=== PATIENT | female | born 1990 | race Caucasian/White ===

== ENCOUNTER → 2018-03-08 09:39 | Outpatient (CLI) | payer OTHER, SELFPAY ==
--- NOTE | 2018-03-08 | DI.US.S_ITS ---
PROCEDURE: US OB >= 14 WEEKS FETUS INDICATIONS: ANATOMY SCREENING OUTSIDE/PRIOR DATING DATA: Last menstrual period (LMP): 10/19/2017. LMP-based estimated date of delivery (JOSE CRUZ): 07/26/2018. First dating scan (date and location): 12/28/2017. Estimated date of delivery (JOSE CRUZ) from first dating scan: 07/24/2018. TECHNIQUE: Real-time scanning was performed of the fetus, with image documentation and biometric measurements. Endovaginal scanning: Not required COMPARISON: [facility], OB COMPLETE LESS THAN 14 WKS, 12/28/2017, 21:01. FINDINGS: General: A single living intrauterine gestation is present. Presentation: Vertex. Placenta: Placental position is anterior right, without previa. Amniotic fluid index: 14.4 cm, normal range is 5-24 cm. heart rate: 149 beats per minute. Maternal cervical canal: 3.4 cm long. Normal lower limit is 2.5 cm. biometrics: Biparietal diameter: 21 weeks 6 days Head circumference: 20 weeks 2 days Abdominal circumference: 20 weeks 4 days Femur length: 20 weeks 2 days Estimated gestational age from initial scan: 20 weeks 2 days Composite gestational age from present scan: 20 weeks 5 days Estimated weight and percentile: 358 g at the 58th percentile Measurement variability for biometric dating: +/- 7 days from 14 weeks to 15 weeks 6 days gestation, +/- 10 days from 16 weeks to 21 weeks 6 days gestation, +/- 2 weeks from 22 weeks to 27 weeks 6 days gestation, +/- 3 weeks for 28 weeks gestation or later. weight reference: 4500 g or EFW >90/95% is considered macrosomia or large for gestational age. EFW <10% is small for gestational age. EFW 5% or less is considered intra-uterine growth restriction. Anatomic survey: Neuro: Ventricles are non-dilated at less than 10 mm. Cisterna magna is normal at 3-11 mm. Cerebellum is normal in size and morphology. Nuchal skin fold: Normal at less than 6 mm between 14-21 weeks gestational age. Face: Nose and lips, facial profile are normal. Spine: No evidence for spina bifida. Heart: 4-chambered heart is present, with normal ventricular outflow tracts. Diaphragm: Diaphragm is intact. Stomach: Left-sided stomach is present. Kidneys: No hydronephrosis. Normal is less than 5 mm in 2nd trimester, less than 7 mm in 3rd trimester. Cord: 3-vessel cord has orthotopic insertion. Bladder: Normal in size. Extremities: All 4 extremities identified. IMPRESSION: Single, live intrauterine gestation in Vertex lie showing composite gestational age of 20 weeks 5 days, normal growth and normal anatomy. Dictated by: Tom Souza M.D. on 03/08/2018 at 11:19 Approved by: Tom Souza M.D. on 03/08/2018 at 11:22
== END ==
PROVIDERS: Visit Provider Family Medicine
DX: Z36.89 Encounter for other specified antenatal screening (principal)
CPT/HCPCS: 76811

== ENCOUNTER 2018-04-29 11:27 | Outpatient (CLI) | payer OTHER, SELFPAY | END 2018-04-29 12:15 | disposition home or self-care (01) | LOC: LABOR 12:13 → OB 04-30 17:00 | PROVIDERS: Visit Provider Family Medicine | DX: Z03.71 Encounter for suspected problem with amniotic cavity and membrane ruled out (principal); Z3A.27 27 weeks gestation of pregnancy | CPT/HCPCS: 59025; 84112; G0378; G0379 ==

== ENCOUNTER → 2018-06-28 16:53 | Outpatient (REF) | payer OTHER, SELFPAY | LOC: LAB 16:53 | PROVIDERS: Visit Provider Family Medicine | DX: Z34.03 Encounter for supervision of normal first pregnancy, third trimester (principal); Z34.80 Encounter for supervision of other normal pregnancy, unspecified trimester | CPT/HCPCS: 87081 ==

== ENCOUNTER → 2018-07-16 13:00 | Outpatient (CLI) | payer OTHER, SELFPAY ==
--- NOTE | 2018-07-16 | DI.US.S_ITS ---
PROCEDURE: US OB LIMITED INDICATIONS: SIZE LESS THAN DATES OUTSIDE/PRIOR DATING DATA: Last menstrual period (LMP): 10/19/17. LMP-based estimated date of delivery (JOSE CRUZ): 07/26/18. First dating scan (date and location): 12/28/17. Estimated date of delivery (JOSE CRUZ) from first dating scan: 07/24/18. TECHNIQUE: Real-time scanning was performed of the fetus, with image documentation. Endovaginal scanning: Not needed for this study COMPARISON: Prior OB ultrasound studies for this , 12/28/17, 03/08/18. FINDINGS: A single living intrauterine gestation is present. Presentation: Vertex. Placenta: Placental position is anterior right, without previa. Amniotic fluid index: 10.3 cm, normal range is 5-24 cm. heart rate: 152 beats per minute. Estimated gestational age from initial scan: 38 weeks 5 days. IMPRESSION: Appropriate interval growth, no anomalies suspected, normal amniotic fluid volume, delivery date is projected to be centered on 07/24/18+ or -5 days based on the first available ultrasound. Dictated by: Yaakov Thompson M.D. on 07/16/2018 at 17:19 Approved by: Yaakov Thompson M.D. on 07/16/2018 at 17:21
== END ==
PROVIDERS: PCP Family Medicine; Visit Provider Family Medicine
DX: O36.5930 Maternal care for other known or suspected poor fetal growth, third trimester, not applicable or unspecified (principal); Z3A.38 38 weeks gestation of pregnancy
CPT/HCPCS: 76815

== ENCOUNTER 2018-07-17 11:27 | Outpatient (CLI) | payer OTHER, SELFPAY | END 2018-07-17 12:24 | disposition home or self-care (01) | LOC: OB 10-22 11:53 | PROVIDERS: PCP Family Medicine; Visit Provider Family Medicine | DX: Z34.83 Encounter for supervision of other normal pregnancy, third trimester (principal); Z3A.39 39 weeks gestation of pregnancy | CPT/HCPCS: 59025; G0378; G0379 ==

== ENCOUNTER 2018-07-18 07:17 | Inpatient (IN) | payer OTHER, SELFPAY ==
[2018-07-18] MEDS: LACTATED RINGERS 1,000 ML 100 ML IV ×2 (08:19→16:45)
[2018-07-18] MEDS: OXYTOCIN PREMIX 30 UNIT/500 ML PLAST..BAG IV (08:19)
[2018-07-18 09:29] LABS: Add Manual Diff / Slide Review NO; Basophils Percent Auto 0.4 % (0-2); Hematocrit 33.7 % (36-46); Hemoglobin 11.4 g/dL (12.0-16.0); Lymphocytes Percent Auto 22.6 % (25-40); Mean Corpuscular HGB Conc 33.9 % (30-36); Mean Corpuscular Hemoglobin 30.8 PG (26-34); Mean Corpuscular Volume 90.7 fL (80-100); Monocytes Percent Auto 7.2 % (3-14); Neutrophils Absolute Auto 6600 /uL (3000-5900); Neutrophils Percent Auto 68.8 % (50-75); Platelet Count 161 X10^3/uL (150-400); Red Blood Cell Count 3.72 X10^6/uL (4.0-5.2); Red Cell Distribution Width 13.7 % (11.6-14.8); White Blood Cell Count 9.6 X10^3/uL (4.5-11.0)
[2018-07-18 09:56] VITALS: BP 140/83
--- NOTE | 2018-07-18 12:32 | PM.OBPNLAB ---
Date/Time Date Patient Seen: 07/18/18 Time Patient Seen: 10:33 Pain Control Pain control: tolerating well Pelvic Exam Dilation (cm): 4 Effacement (%): 85 station: -1 Amniotic membrane status: Ruptured Comments: AROM at 8:22 a.m. with bloody fluid Unclear if she ruptured but then began spontaneously leaking clear fluid at 9:18 a.m.. On vaginal exam she had copious amounts of clear fluid Contractions Date/Time contractions began: Irregular contractions yesterday Contractions on admission: regular Monitor mode: External Pitocin rate (mU/min): 8 Contraction frequency (min): 2 Contraction duration (min): 60 Contraction pattern: Regular Contraction intensity: Moderate Status status: Category l Heart Rate Baseline: 130 Monitor Accelerations: Present Monitor Decelerations: Absent Monitor Variability: Moderate Assessment and Plan Assessment: induction ongoing Plan: continuous present management
--- NOTE | 2018-07-18 12:36 | P.PNOB_ITS ---
Date/Time Date Patient Seen: 07/18/18 Time Patient Seen: 10:33 Pain Control Pain control: tolerating well Pelvic Exam Dilation (cm): 4 Effacement (%): 85 station: -1 Amniotic membrane status: Ruptured Comments: AROM at 8:22 a.m. with bloody fluid Unclear if she ruptured but then began spontaneously leaking clear fluid at 9: 18 a.m.. On vaginal exam she had copious amounts of clear fluid Contractions Date/Time contractions began: Irregular contractions yesterday Contractions on admission: regular Monitor mode: External Pitocin rate (mU/min): 8 Contraction frequency (min): 2 Contraction duration (min): 60 Contraction pattern: Regular Contraction intensity: Moderate Status status: Category l Heart Rate Baseline: 130 Monitor Accelerations: Present Monitor Decelerations: Absent Monitor Variability: Moderate Assessment and Plan Assessment: induction ongoing Plan: continuous present management
[2018-07-18] MEDS: ONDANSETRON 4 MG/2 ML INJ IV (15:19)
--- NOTE | 2018-07-18 19:53 | PM.OBPNLAB ---
Date/Time Date Patient Seen: 07/18/18 Time Patient Seen: 19:53 Pain Control Pain control: epidural Pelvic Exam Dilation (cm): 10 Effacement (%): 100 station: +1 Amniotic membrane status: Ruptured Contractions Contractions on admission: regular Monitor mode: External Pitocin rate (mU/min): 10 Contraction frequency (min): 2 Contraction pattern: Regular Contraction intensity: Moderate Status status: Category l Heart Rate Baseline: 120 Monitor Accelerations: Present Monitor Decelerations: Variable Monitor Variability: Moderate Assessment and Plan Assessment: active labor Plan: continuous present management Comments: Begin pushing GBS negative Rh positive Artificial rupture membranes at 8:22 a.m. clear Epidural working well Wrist during heart tracing
--- NOTE | 2018-07-18 21:54 | P.PCNOB_ITS ---
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 Unremarkable . GBS negative. Rh positive. Quad screen negative. Glucose tolerance test 109. Status post flu shot and Tdap Stage I lasted 4 hours and 50 min patient was felt to be in active labor at 3:00 p.m.. Pitocin was begun at 8:00 a.m. and artificial rupture membranes of bloody fluid obtained at 8:22 a.m. then spontaneously Wally at 9:18 a.m.. Fluid was clear throughout. Duration of rupture membranes was 12 hr and 35 min. Maximum Pitocin was 14 milliunits. Patient was feeling more painful contractions at 12:30 p.m. and then at approximately 3:00 a.m. was requesting epidural anesthesia. She has 4-5 cm dilated. Epidural was placed at 15 40. Patient was comfortable. She received 3 boluses. Patient was noted to be complete at 7:50 p.m.. External tocometer used throughout stage I showed regular uterine contractions every 2-3 minutes. External heart monitor used throughout stage I with baseline in the 130s to 140s with accelerations to the 170s especially with head stimulation and moderate variability with occasional variable deceleration. Overall reassuring strip Stage II lasted 55 min The patient was noted to be complete at 7:50 p.m. and labored down. Pain pushing began at 8:02 p.m.. Patient had difficulty pushing and was fighting against as pushing but slowly made progress. Different pushing positions were used. And then quickly the head when around the suprapubic bone and the head was delivered occiput anterior SEN. The head was delivered and there is a tight nuchal cord that was clamped x2 and cut on the perineum anterior shoulder was delivered and then posterior shoulder and baby placed on mom's chest. Apgars were 8 at 1 min and 9 at 5 min, weight is pending External tocometer was used throughout stage II as well as external heart monitor. Baby's baseline 1-1 10-120 with accelerations symptoms with pushing with variable D cells with pushing at times. Stage III lasted 7 min Normal spontaneous vaginal delivery of an intact placenta that was moderately calcified with central cord insertion. There is a three-vessel cord. There is 250 cc of blood loss. There was a small first-degree laceration which was repaired in the usual fashion. Pitocin was running after delivery of the placenta. There were no vaginal lacerations no cervical lacerations. At the time of dictation both mom and baby are in stable condition Plan for aftercare: routine
--- NOTE | 2018-07-18 21:54 | PM.OBHP.1 ---
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 Baby has been moving. Review of systems negative Past Ob history is remarkable for Normal spontaneous vaginal delivery 2006, 37 weeks gestation, 6 lb 3 oz Normal spontaneous vaginal delivery in 2007, 37 weeks gestation, 6 lb 3 oz, no complications Past medical history is remarkable for C diff colitis in 2006 Inflammatory bowel disease, Crohn's no current issues. Nephrolithiasis Previous history of mood disorder Reactive airway disease Past surgical history Lithotripsy 2007 Nasal fracture surgery Two thousand one left knee dislocated status post surgery Social history. Patient is and lives with her and her 2 daughters frank and Clau. 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 She is originally from [place]. Much of her family is there. Health 3 days behavior: Patient does not use drugs, does not use alcohol and does not smoke. care was begun initially at [facility] and then she transferred to our clinic. She transferred at 15 weeks so it was too late to do sequential screen. She had a quad screen that was negative. A she had a urinary tract infection early on in . She had a LMP and 10 week ultrasound which confirmed her EDC of 07/24/2018 she had ultrasound actually at 6 weeks as well I confirmed this serology GBS was negative at 06/30/2018 rubella was immune initially but are repeat rubella was nonimmune hemoglobin was low at 10.9 and she was started on iron glucose tolerance test was 120 chlamydia gonorrhea negative Pap smear in with an HPV negative hepatitis B negative syphilis negative varicella a negative hepatitis-C negative HIV negative hep A negative B positive status post Tdap and flu shot had approximately 12 OB visits had 40 lb weight gain blood pressures were good Evaluation Evaluation Laboratory results: Laboratory Tests 07/18/18 07/18/18 08:00 08:00 WBC 9.6 RBC 3.72 L Hgb 11.4 L Hct 33.7 L MCV 90.7 MCH 30.8 MCHC 33.9 RDW 13.7 Plt Count 161 Neut % (Auto) 68.8 Lymph % (Auto) 22.6 L [place] % (Auto) 7.2 Eos % (Auto) 1.0 L Baso % (Auto) 0.4 Neut # (Auto) 6600 H Blood Type B Positive Antibody Screen Negative PFSH Social History Smoking Status: Never smoker Meds Home Medications Medication Instructions Recorded Confirmed Type eplvsshebc-bkbgrvdeevnkc-atohanim 1 cap PO Q4H PRN 01/30/18 07/18/18 History 50 mg-300 mg-40 mg capsule ondansetron HCl 4 mg tablet 4 mg PO Q6H PRN 01/30/18 07/18/18 History 1 tab PO DAILY 01/30/18 07/18/18 History vitamin,calcium,dcfrllzp-mkej-amxkt acid tablet Allergies Allergy/AdvReac Type Severity Reaction Status Date / Time levofloxacin [From LEVAQUIN] Allergy Severe anaphalaxis Unverified 01/02/18 12:52 Sulfa (Sulfonamide Allergy Intermediate hives, rash Unverified 01/30/18 10:24 Antibiotics) [SULFA (SULFONAMIDE ANTIBIOTICS)] Review of Systems Review of Systems Patient has had irregular contractions. There has been a leaking fluid. There has no been changed on discharge. She has had now and epigastric pain. She has had a headache. She has had no swelling. She has had no urinary symptoms. She has had no GI symptoms. All systems reviewed & are unremarkable except as noted in HPI and below Exam Narrative Exam Narrative: Afebrile, vital signs are stable, alert and oriented x2 HEENT: Unremarkable Neck is supple Chest: Clear to auscultation Cor: Regular rate and rhythm without murmur Abdomen: Gravid, vertex, estimated weight 7 to 7 a 0.5 lb Extremities: No edema, DTRs are intact Cervix 2 cm 80% effaced, intact bag of water, midposition heart tracing category 1 Irregular uterine contractions Objective Labs Result Diagrams: 07/18/18 08:00 Labs: Laboratory Results - last 24 hr 07/18/18 07/18/18 08:00 08:00 WBC 9.6 RBC 3.72 L Hgb 11.4 L Hct 33.7 L MCV 90.7 MCH 30.8 MCHC 33.9 RDW 13.7 Plt Count 161 Neut % (Auto) 68.8 Lymph % (Auto) 22.6 L Braxton % (Auto) 7.2 Eos % (Auto) 1.0 L Baso % (Auto) 0.4 Neut # (Auto) 6600 H Blood Type B Positive Antibody Screen Negative Assessment and Plan Plan: Plan: at 39 in 1 7 weeks estimated gestational age here for elective induction Pitocin Arom GBS negative Glucose tolerance test 120 Arch positive Expected management
--- NOTE | 2018-07-18 22:05 | P.HPOB_ITS ---
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 Baby has been moving. Review of systems negative Past Ob history is remarkable for Normal spontaneous vaginal delivery 2006, 37 weeks gestation, 6 lb 3 oz Normal spontaneous vaginal delivery in 2007, 37 weeks gestation, 6 lb 3 oz, no complications Past medical history is remarkable for C diff colitis in 2006 Inflammatory bowel disease, Crohn's no current issues. Nephrolithiasis Previous history of mood disorder Reactive airway disease Past surgical history Lithotripsy 2007 Nasal fracture surgery Two thousand one left knee dislocated status post surgery Social history. Patient is and lives with her and her 2 daughters frank and Clau. 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 She is originally from [place]. Much of her family is there. Health 3 days behavior: Patient does not use drugs, does not use alcohol and does not smoke. care was begun initially at [facility] and then she transferred to our clinic. She transferred at 15 weeks so it was too late to do sequential screen. She had a quad screen that was negative. A she had a urinary tract infection early on in . She had a LMP and 10 week ultrasound which confirmed her EDC of 07/24/2018 she had ultrasound actually at 6 weeks as well I confirmed this serology GBS was negative at 06/30/2018 rubella was immune initially but are repeat rubella was nonimmune hemoglobin was low at 10.9 and she was started on iron glucose tolerance test was 120 chlamydia gonorrhea negative Pap smear in with an HPV negative hepatitis B negative syphilis negative varicella a negative hepatitis-C negative HIV negative hep A negative B positive status post Tdap and flu shot had approximately 12 OB visits had 40 lb weight gain blood pressures were good Evaluation Evaluation Laboratory results: Laboratory Tests 07/18/18 07/18/18 08:00 08:00 WBC 9.6 RBC 3.72 L Hgb 11.4 L Hct 33.7 L MCV 90.7 MCH 30.8 MCHC 33.9 RDW 13.7 Plt Count 161 Neut % (Auto) 68.8 Lymph % (Auto) 22.6 L [place] % (Auto) 7.2 Eos % (Auto) 1.0 L Baso % (Auto) 0.4 Neut # (Auto) 6600 H Blood Type B Positive Antibody Screen Negative PFSH Social History Smoking Status: Never smoker Meds Home Medications Medication Instructions Recorded Confirmed Type ljqhbsjfog-boajfecbuuicq-akbemovt 1 cap PO Q4H PRN 01/30/18 07/18/18 History 50 mg-300 mg-40 mg capsule ondansetron HCl 4 mg tablet 4 mg PO Q6H PRN 01/30/18 07/18/18 History 1 tab PO DAILY 01/30/18 07/18/18 History vitamin,calcium,fjytglwm-yfqj-uzdpx acid tablet Allergies Allergy/AdvReac Type Severity Reaction Status Date / Time levofloxacin [From LEVAQUIN] Allergy Severe anaphalaxis Unverified 01/02/18 12: 52 Sulfa (Sulfonamide Allergy Intermediate hives, rash Unverified 01/30/18 10:24 Antibiotics) [SULFA (SULFONAMIDE ANTIBIOTICS)] Review of Systems Review of Systems Patient has had irregular contractions. There has been a leaking fluid. There has no been changed on discharge. She has had now and epigastric pain. She has had a headache. She has had no swelling. She has had no urinary symptoms. She has had no GI symptoms. All systems reviewed & are unremarkable except as noted in HPI and below Exam Narrative Exam Narrative: Afebrile, vital signs are stable, alert and oriented x2 HEENT: Unremarkable Neck is supple Chest: Clear to auscultation Cor: Regular rate and rhythm without murmur Abdomen: Gravid, vertex, estimated weight 7 to 7 a 0.5 lb Extremities: No edema, DTRs are intact Cervix 2 cm 80% effaced, intact bag of water, midposition heart tracing category 1 Irregular uterine contractions Objective Labs Result Diagrams: 07/18/18 08:00 Labs: Laboratory Results - last 24 hr 07/18/18 07/18/18 08:00 08:00 WBC 9.6 RBC 3.72 L Hgb 11.4 L Hct 33.7 L MCV 90.7 MCH 30.8 MCHC 33.9 RDW 13.7 Plt Count 161 Neut % (Auto) 68.8 Lymph % (Auto) 22.6 L [place] % (Auto) 7.2 Eos % (Auto) 1.0 L Baso % (Auto) 0.4 Neut # (Auto) 6600 H Blood Type B Positive Antibody Screen Negative Assessment and Plan Plan: Plan: at 39 in 1 7 weeks estimated gestational age here for elective induction Pitocin Arom GBS negative Glucose tolerance test 120 Arch positive Expected management
[2018-07-18] MEDS: diphenhydrAMINE 25 MG TABLET PO (22:15)
[2018-07-19] MEDS: DERMOPLAST SPRAY 20% 60 ML 1 SPRAY TOP (00:01)
[2018-07-19] MEDS: LANOLIN OINT 7 GM 1 APPLIC TOP (00:01)
[2018-07-19 01:09] VITALS: TEMP 36.7
[2018-07-19] MEDS: OXYCODONE/ACETAMINOPHEN 5/325 TABLET 1 TAB PO ×4 (01:09→16:20)
[2018-07-19 05:07] VITALS: TEMP 36.7
[2018-07-19 07:19] LABS: Hematocrit 31.8 % (36-46); Hemoglobin 10.8 g/dL (12.0-16.0)
[2018-07-19] MEDS: DOCUSATE 250 MG CAPSULE PO (08:36)
[2018-07-19 08:37] VITALS: TEMP 36.2
[2018-07-19] MEDS: PRENATAL VIT,CALC/IRON/FOLIC 1 TABLET 1 TAB PO (08:37)
[2018-07-19] MEDS: IBUPROFEN 600 MG TABLET PO ×3 (08:37→16:18)
[2018-07-19] MEDS: ONDANSETRON 4 MG ODT PO (08:57)
[2018-07-19] MEDS: FERROUS GLUCONATE 324 MG TABLET PO (10:20)
[2018-07-19 15:05] VITALS: BP 108/69; PULSE 53; RESP 16; TEMP 36.2
[2018-07-19] MEDS: MEASLES,MUMPS,RUBELLA VACC/PF 0.5 ML VIAL SUBCUT (16:05)
--- NOTE | 2018-07-19 18:59 | PM.DS.1 ---
History of Present Illness Date Patient Seen: 07/19/18 Time Patient Seen: 18:59 Chief complaint: OBSERVATION Narrative: Patient term intrauterine was brought in for induction no complications. Socially mother had just had a stroke on the day she was admitted. No other changes. Discharge Providers Date of admission: 07/18/18 07:17 Primary care physician: Lisa Durbin MD Consults: 07/18/18 21:28 Consult to [employer] Rep[employer]r Routine Comment: Discharge provider: Arnold Ambriz MD Discharge Date: 07/19/18 Summary Discharge Diagnosis: Term intrauterine . Delivered. Hospital Course: Patient was admitted and induced by Dr. Durbin. Induction was slightly longer than expected but no complications delivery went well. Mom had minimal bleeding recovered well. Pain was well controlled having some nausea with her Percocet. She had minimal local ER. No fevers or chills. Due to the social situation she would like to be discharged home. This is her 3rd baby and she feels like she knows what she has done she is feels like she is in a good location. She does have excellent support. Breast-feeding was going well. She will be discharged to home follow-up with Dr. Durbin in 2 weeks. Exam Vital Signs (past 8 hours): - 07/19/18 15:05 Temperature 97.1 F L Pulse Rate 53 L Respiratory Rate 16 Blood Pressure 108/69 Objective Labs Result Diagrams: 07/19/18 06:24 Labs: Laboratory Results - last 24 hr 07/19/18 06:24 Hgb 10.8 L Hct 31.8 L Discharge Plan Discharge Plan Patient Disposition: Home Discharge Med Rec/Prescriptions Prescriptions: New oxycodone-acetaminophen 5-325 mg Tablet 1 tab PO Q4HR Qty: 30 RF: 0 ibuprofen 600 mg Tablet 600 mg PO Q6HR PRN (Reason: Pain, Mild (1-3)) Qty: 90 RF: 0 docusate sodium 250 mg Capsule 250 mg PO DAILY Qty: 60 RF: 1 lanolin [Bov-N-Dguniu] Cream 1 applic Topical PRN PRN (Reason: Tenderness) Qty: 1 RF: 3 ferrous gluconate 324 mg (38 mg iron) Tablet 324 mg PO DAILY Qty: 100 RF: 0 Continue ondansetron HCl [Zofran] 4 mg tablet 4 mg PO Q6H PRN (Reason: Nausea) RF: 0 prenat.vits,rufus,ukv-qvge-blswg tablet 1 tab PO DAILY RF: 0 huhwxiqdhk-cfmnoprogdkpn-mkml [Fioricet] 50-300-40 mg capsule 1 cap PO Q4H PRN (Reason: Headache) RF: 0 Follow up/Referrals: Lisa Durbin MD [Primary Care Provider] - 2 Weeks (See Dr. Durbin on August 01 at 10:30 am for a 2 week post visit. Call to reschedule.) Provider Discharge Instructions Diet: Diet as Tolerated Diet comment: as tolerated Activity: take it easy. Visit Report/Discharge Packet Stand Alone Forms: Discharge: Care Visit Report Forms: Stroke Signs & Symptoms Discharge Data Primary Care Provider: Lisa Durbin Attending Provider: Lisa Durbin Admit Date/Time: 07/18/18 07:17 Discharges patient from system. Discharge Date/Time: 07/19/18 17:10
== END 2018-07-19 17:10 | disposition home or self-care (01) | DRG 807 ==
PROVIDERS: Admitting Provider Family Medicine; PCP Family Medicine; Visit Provider Family Medicine
DX: O69.1XX0 Labor and delivery complicated by cord around neck, with compression, not applicable or unspecified (principal); Z37.0 Single live birth; Z3A.39 39 weeks gestation of pregnancy; O70.0 First degree perineal laceration during delivery
CPT/HCPCS: 01967; 36415; 59050; 76815; 85014; 85018; 85025; 86850; 86900; 86901; G0379; J2405; J2590; J3010

== ENCOUNTER → 2019-01-08 13:07 | Outpatient (CLI) | payer OTHER, SELFPAY ==
--- NOTE | 2019-01-08 | DI.RAD.S_ITS ---
PROCEDURE: XR LUMBAR SPINE 2-3V INDICATIONS: BACK PAIN TECHNIQUE: 3 views of the lumbar spine were acquired. COMPARISON: None. FINDINGS: Bones: 5 ozg-icp-iiritou vertebrae are present. There is a minimally levoscoliotic bony alignment centered at the mid lumbosacral spine. No vertebral body compression fractures. No suspicious bony lesions. Soft tissues: Overlying bowel gas pattern is normal. No suspicious soft tissue calcifications. IMPRESSION: Minimal levoscoliosis mid lumbosacral spine, no trauma found. Dictated by: Yaakov Thompson M.D. on 01/08/2019 at 13:49 Approved by: Yaakov Thompson M.D. on 01/08/2019 at 13:50
--- NOTE | 2019-01-08 | DI.RAD.S_ITS ---
PROCEDURE: XR THORACIC SPINE 2V INDICATIONS: BACK PAIN TECHNIQUE: 3 views of the thoracic spine were acquired. COMPARISON: None. FINDINGS: Bones: No fractures or dislocations. No suspicious bony lesions. 12 pairs of ribs are noted, and appear intact where visualized. There is slight dextroscoliosis centered at the lower thoracic spine Soft tissues: No paravertebral stripe thickening. IMPRESSION: Slight dextroscoliosis centered at the lower thoracic spine, no chronic or recent trauma found. Dictated by: Yaakov Thompson M.D. on 01/08/2019 at 13:50 Approved by: Yaakov Thompson M.D. on 01/08/2019 at 13:50
== END ==
PROVIDERS: PCP Family Medicine; Visit Provider Family Medicine
DX: M54.9 Dorsalgia, unspecified (principal)
CPT/HCPCS: 72070; 72100

== ENCOUNTER → 2019-05-14 10:27 | Outpatient (CLI) | payer OTHER, SELFPAY ==
--- NOTE | 2019-05-14 | DI.US.S_ITS ---
PROCEDURE: US OB <= 14 WEEKS FETUS INDICATIONS: INITIAL SIZING AND DATING OUTSIDE/PRIOR DATING DATA: Last menstrual period (LMP): 03/14/19. LMP-based estimated date of delivery (JOSE CRUZ): 12/19/19. First dating scan (date and location): 05/14/19. Estimated date of delivery (JOSE CRUZ) from first dating scan: 01/13/20. TECHNIQUE: Real-time scanning was performed of the fetus and maternal pelvic organs, with image documentation. COMPARISON: None. FINDINGS: Embryo: A presumed intrauterine gestational sac measuring 0.4 cm diameter, 5 weeks one day, possibly within the right cornual uterus. No pole identified. Measurement variability in dating: +/- 4 weeks by LMP, +/- 7 days by mean sac diameter (use before 6 weeks gestation if crown-rump length not able to be measured), +/- 5 days by crown-rump length (up to 8 weeks 6 days gestation), +/- 7 days by crown-rump length (up to 13 weeks 6 days gestation). Maternal organs: Ovaries unremarkable. Limited images through the kidneys demonstrate no hydronephrosis. IMPRESSION: Presumed intrauterine gestational sac however no pole identified. This could represent early IUP, missed spontaneous . Technically, cannot exclude cornual, interstitial versus angular at this time. Recommend followup with one week pelvic ultrasound, and correlation with serial beta-hCG values. Dictated by: Sherwin Gaffney M.D. on 05/14/2019 at 11:21 Approved by: Sherwin Gaffney M.D. on 05/14/2019 at 11:30
== END ==
PROVIDERS: PCP Family Medicine; Visit Provider Family Medicine
DX: Z34.80 Encounter for supervision of other normal pregnancy, unspecified trimester (principal)
CPT/HCPCS: 76801; 76817